=== PATIENT | female | born 1965 | race Caucasian/White ===

== ENCOUNTER 2018-03-13 11:49 | Day surgery (SDC) | payer OTHER ==
[2018-03-13] MEDS ORDERED: PROPOFOL 60 ML (13:55)
[2018-03-13] MEDS ORDERED: LIDOCAINE 2% (SDV) 5 ML INJ (13:55)
== END 2018-03-13 14:37 | disposition home or self-care (01) ==
LOC: GIL 11:49
DX: Z12.11 Encounter for screening for malignant neoplasm of colon (principal); K57.32 Diverticulitis of large intestine without perforation or abscess without bleeding; K29.70 Gastritis, unspecified, without bleeding; J45.909 Unspecified asthma, uncomplicated
CPT/HCPCS: 43239; 88305